=== PATIENT | female | born 2000 | race African-American/Black ===

== ENCOUNTER 2020-07-13 13:19 | Emergency (ER) | payer SELFPAY ==
[~2020-07-13] VITALS: Ht 170.2 cm; Wt 101.6 kg
--- NOTE | 2020-07-13 13:49 | PHYS DOC ---
General Adult EDM: Chief Complaint: LOWER BACK PAIN OR INJURY HPI: HPI: Patient is a 20-year-old female who presents with lower back pain. Patient states that she was at work yesterday trying to take a box of Albanian fries off the top shelf, the Albanian fries fell and hit her lower back. Patient states t hat she did not have any pain at the time but started having lower back pain today. Patient denies any radiation of pain, urinary retention or loss of bowel. Patient denies numbness and tingling. Patient reports taking Tylenol at home with little relief for pain. Review of Systems: Review of Systems: Constitutional: Denies fever or chills Eyes: Denies change in visual acuity HENT: Denies nasal congestion or sore throat Respiratory: Denies cough or shortness of breath Cardiovascular: Denies chest pain or edema GI: Denies abdominal pain, nausea, vomiting, bloody stools or diarrhea : Denies dysuria Musculoskeletal: Reports lower back pain denies joint pain Integument: Denies rash Neurologic: Denies headache, focal weakness or sensory changes Endocrine: Denies polyuria or polydipsia Lymphatic: Denies swollen glands Psychiatric: Denies depression or anxiety Allergies: Allergies: Allergies Uncoded Allergies Type Severity Reaction Last Updated Verified UNKNOWN ADHD MED Allergy Unknown 07/13/20 Physical Exam: PE: Constitutional: Well developed, well nourished, no acute distress, non-toxic appearance. [] HENT: Normocephalic, atraumatic, bilateral external ears normal, oropharynx moist, no oral exudates, nose normal. [] Eyes: PERRLA, EOMI, conjunctiva normal, no discharge. [] Neck: Normal range of motion, no tenderness, supple, no stridor. [] Cardiovascular:Heart rate regular rhythm, no murmur [] Lungs & Thorax: Bilateral breath sounds clear to auscultation [] Abdomen: Bowel sounds normal, soft, no tenderness, no masses, no pulsatile masses. [] Skin: Warm, dry, no erythema, no rash. [] Back: Lower back tenderness, no CVA tenderness. [] Extremities: No tenderness, no cyanosis, no clubbing, ROM intact, no edema. [] Neurologic: Alert and oriented X 3, normal motor function, normal sensory function, no focal deficits noted. [] Psychologic: Affect normal, judgement normal, mood normal. [] EKG: EKG: [] Radiology/Procedures: Radiology/Procedures: []NDICATION: Reason: box fell on lower back, back pain / Spl. Instructions: / History: COMPARISON: None. IMPRESSION: Lumbar spine: 3 views obtained. No acute fracture or dislocation. Mild retrolisthesis of L4 on 5 and L5 on S1. Electronically signed by: Marc Romna MD (07/13/2020 2:10 PM) [id number] Heart Score: Risk Factors: Risk Factors: DM, Current or recent (<one month) smoker, HTN, HLP, family history of CAD, obesity. Risk Scores: Score 0 - 3: 2.5% MACE over next 6 weeks - Discharge Home Score 4 - 6: 20.3% MACE over next 6 weeks - Admit for Clinical Observation Score 7 - 10: 72.7% MACE over next 6 weeks - Early Invasive Strategies Course & Med Decision Making: Course & Med Decision Making Pertinent Labs and Imaging studies reviewed. (See chart for details) []Patient is a 20-year-old female who presents with lower back pain. Patient states that she was at work yesterday trying to take a box of Albanian fries off the top shelf, the Albanian fries fell and hit her lower back. Patient states that she did not have any pain at the time but started having lower back pain today. Patient denies any radiation of pain, urinary retention or loss of bowel. Patient denies numbness and tingling. Patient reports taking Tylenol at home with little relief for pain. While discussing plan with patient, patient suggested x-ray. Patient states her last menstrual period was 05/03/2020. Patient unsure if she is . Will obtain urine preg and lumbar x-ray. Negative Test. Lumbar spine xray shows No acute fracture or dislocation. Mild retrolisthesis of L4 on 5 and L5 on S1. Will give patient torodal injection in ED and send home with prescription for flexeril. Patient to follow up with PCP if symptoms are not improving. Ibuprofen and ice at home for discomfort. Dragon Disclaimer: Dragon Disclaimer: This electronic medical record was generated, in whole or in part, using a voice recognition dictation system. Departure Departure: Impression: Primary Impression: Back pain Qualified Codes: M54.5 - Low back pain Disposition: 01 DC HOME SELF CARE/HOMELESS Condition: STABLE Referrals: PCP,NO (PCP) Patient Instructions: Back Exercises, [id number], Back Pain, Adult Additional Instructions: You were seen in the ER today for lower back pain. Your test was negative. The Lumbar spine xray shows No acute fracture or dislocation. You were given a torodal injection in ED and sent home with a prescription for flexeril. You can you ibuprofen at home for pain and use ice to your lower back. If symptoms persist, please follow up with primary care physician. I have also provided you with a work note for today. Please return to the ED for worsening symptoms or concerns. EMERGENCY DEPARTMENT GENERAL DISCHARGE INSTRUCTIONS Thank you for coming to [facility] (ED) today and trusting us with you care. We trust that you had a positivie experience in our Emergency Department. If you wish to speak to the department management, you may call the director at [phone]. YOUR FOLLOW UP INSTRUCTIONS ARE FOLLOWS: 1. Do you have a private Doctor? If you do not have a private doctor, please ask for a resource list of physicians or clinics that may be able to assist you with follow up care. 2. The Emergency Physician has interpreted your x-rays. The X-Ray specialist will also review them. If there is a change in the findings, you will be notified in 48 hours when at all possible. 3. A lab test or culture has been done, your results will be reviewed and you will be notified if you need a change in treatment. ADDITIONAL INSTRUCTIONS AND INFORMATION: 1. Your care today has been supervised by a physician who is specially trained in emergency care. Many problems require more than one evaluation for a complete diagnosis and treatment. We recommend that you schedule your follow up appointment as recommended to ensure complete treatment of you illness or injury. If you are unable to obtain follow up care and continue to have a problem, or if your condition worsens, we recommend that you return to the ED. 2. We are not able to safely determine your condition over the phone nor are we able to give sound medical advice over the phone. For these safety reasons, if you call for medical advice we will ask you to come to the ED for further evaluation. 3. If you have any questions regarding these discharge instructions please call the ED at [phone]. SAFETY INFORMATION: In the interest of safety, wellness, and injury prevention; we encourage you to wear your sealbelt, if you smoke; quite smoking, and we encourage family to use a protective helmet for bicycling and other sporting events that present an increased risk for head injury. IF YOUR SYMPTOMS WORSEN OR NEW SYMPTOMS DEVELOP, OR YOU HAVE CONCERNS ABOUT YOUR CONDITION; OR IF YOUR CONDITION WORSENS WHILE YOU ARE WAITING FOR YOUR FOLLOW UP APPOINTMENT; EITHER CONTACT YOUR PRIMARY CARE DOCTOR, THE PHYSICIAN WHOSE NAME AND NUMBER YOU WERE GIVEN, OR RETURN TO THE ED IMMEDIATELY. Scripts Cyclobenzaprine Hcl (CYCLOBENZAPRINE HCL) 10 Mg Tablet 1 TAB PO TID PRN PRN for PAIN for 4 Days, #12 TAB Prov: EBONIE JAY APRN 07/13/20 EBONIE JAY APRN Jul 13, 2020 13:49
--- NOTE | 2020-07-13 14:13 | RAD ---
INDICATION: Reason: box fell on lower back, back pain / Spl. Instructions: / History: COMPARISON: None. IMPRESSION: Lumbar spine: 3 views obtained. No acute fracture or dislocation. Mild retrolisthesis of L4 on 5 and L5 on S1. Electronically signed by: Marc Roman MD (07/13/2020 2:10 PM) [id number]
[2020-07-13] MEDS ORDERED: CYCL-331 PO (14:26)
[2020-07-13 14:28] VITALS: BP 127/65
[2020-07-13] MEDS ORDERED: KETOROLAC 60 MG/2 ML VIAL. IM ONE (14:30)
[2020-07-13] MEDS ORDERED: CYCLOBENZAPRINE 10 MG TABLET. PO ONE (14:30)
== END 2020-07-13 14:40 | disposition home or self-care (01) ==
LOC: ER 13:19
DX: M54.5 Low back pain (principal); X50.9XXA Other and unspecified overexertion or strenuous movements or postures, initial encounter; Y93.89 Activity, other specified; Y92.89 Other specified places as the place of occurrence of the external cause; Y99.8 Other external cause status
CPT/HCPCS: 72100; 81025; 96372; 99283; J1885

== ENCOUNTER 2020-08-30 13:48 | Emergency (ER) | payer SELFPAY ==
[~2020-08-30] VITALS: Ht 170.2 cm; Wt 95.5 kg
[~2020-08-30 13:48] MED LIST: CYCL-331 PO
--- NOTE | 2020-08-30 14:16 | PHYS DOC ---
Past History Past Medical History: Other Additional Past Medical Histor: ADHD Past Surgical History: No Surgical History Alcohol Use: Occasionally Adult General Chief Complaint Chief Complaint: ABDOMINAL PAIN HPI HPI Patient is a 20-year-old female reports she started her normal menstrual cycle yesterday, woke up this morning with heavy cramping. Patient describes her menstrual bleeding as rubber mixer than normal, usually last 5 days. Patient states she has been having intermittent missed menstrual cycles that have been increasing over the past couple of years, states her last normal menstrual cycle was May [id number]. Patient describes her cramping is low pelvic, is not worse on the left or the right side. Patient reports her cramping is an 10/10 1-10 pain scale. Patient reports that her menstrual cramping is worse than usual, however has not had a 4-month delay in menstrual cycle in the past. Patient denies any vaginal discharge, denies any STI concerns. Patient denies urinary tract infection signs and symptoms. Patient states she had a normal bowel movement today. Patient denies any abdominal pain, nausea, vomiting, or diarrhea. Patient denies any recent fever or chills, denies body aches or gene ral malaise. Patient denies chest pain, shortness of breath, chest congestion or nasal congestion. Patient reports she took 800 mg of Motrin 2 hours ago and has not noticed any pain relief. Review of Systems Review of Systems 14 body systems of review of systems have been reviewed. See HPI for pertinent positives and negative responses, otherwise all other systems are negative, nonpertinent or noncontributory. Allergies Allergies Allergies Uncoded Allergies Type Severity Reaction Last Updated Verified UNKNOWN ADHD MED Allergy Unknown 07/13/20 Physical Exam Physical Exam Constitutional: Well developed, well nourished, no acute distress, non-toxic appearance. 20-year-old female in no apparent distress. HENT: Normocephalic, atraumatic, bilateral external ears normal, oropharynx moist, no oral exudates, nose normal. Oropharynx pink without drainage without signs of infectious process, there is no lymphadenopathy appreciated of the head and neck. Eyes: PERRLA, EOMI, conjunctiva normal, no discharge. Neck: Normal range of motion, no tenderness, supple, no stridor. No nuchal rigidity, no midline spine tenderness appreciated. Cardiovascular:Heart rate regular rhythm, no murmur, heart sounds S1-S2 to auscultation. Lungs & Thorax: Bilateral breath sounds clear to auscultation all lung waters. No adventitious lung sounds appreciated. Abdomen: Bowel sounds normal all 4 quadrants, soft, no tenderness all 4 quadrants however pain elicited with palpation low pelvic area with increased pain on left, no masses, no pulsatile masses. Skin: Warm, dry, no erythema, no rash. Back: No tenderness, no CVA tenderness. No midline spine tenderness. Extremities: No tenderness, no cyanosis, no clubbing, ROM intact, no edema. Distal cap refill less than 2 seconds, distal pulses +2/4. Neurologic: Alert and oriented X 3, normal motor function, normal sensory function, no focal deficits noted. Psychologic: Affect normal, judgement normal, mood normal. Current Patient Data Vital Signs Vital Signs Date Time Temp Pulse Resp B/P (MAP) Pulse Ox O2 Delivery O2 Flow Rate FiO2 08/30/20 13:56 97.8 70 16 127/67 (87) 98 Room Air Lab Results Laboratory Tests Test 08/30/20 14:19 08/30/20 14:34 08/30/20 14:46 Urine Collection Type Unknown Urine Color Flory Urine Clarity Clear Urine pH 6.5 Urine Specific [place] 1.025 Urine Protein Neg Urine Glucose (UA) Neg mg/dL Urine Ketones (Stick) Neg mg/dL Urine Blood Large Urine Nitrite Neg Urine Bilirubin Neg Urine Urobilinogen Dipstick 0.2 mg/dL Urine Leukocyte Esterase Neg Urine RBC >40 /HPF Urine WBC 0 /HPF Urine Squamous Epithelial Cells Mod /LPF Urine Bacteria 0 /HPF Bedside Urine HCG, Qualitative hcg negative White Blood Count 8.4 x10^3/uL Red Blood Count 4.06 x10^6/uL Hemoglobin 11.9 g/dL Hematocrit 36.9 % Mean Corpuscular Volume 91 fL Mean Corpuscular Hemoglobin 29 pg Mean Corpuscular Hemoglobin Concent 32 g/dL Red Cell Distribution Width 13.9 % Platelet Count 282 x10^3/uL Neutrophils (%) (Auto) 67 % Lymphocytes (%) (Auto) 24 % Monocytes (%) (Auto) 8 % Eosinophils (%) (Auto) 1 % Basophils (%) (Auto) 0 % Neutrophils # (Auto) 5.6 x10^3uL Lymphocytes # (Auto) 2.0 x10^3/uL Monocytes # (Auto) 0.6 x10^3/uL Eosinophils # (Auto) 0.1 x10^3/uL Basophils # (Auto) 0.0 x10^3/uL Sodium Level 141 mmol/L Potassium Level 4.0 mmol/L Chloride Level 105 mmol/L Carbon Dioxide Level 26 mmol/L Anion Gap 10 Blood Urea Nitrogen 15 mg/dL Creatinine 0.8 mg/dL Estimated GFR (Cockcroft-Gault) 110.7 Glucose Level 74 mg/dL Calcium Level 8.8 mg/dL Current Medications Medications (Trade) Dose Ordered Sig/Lata Route PRN Reason Start Time Stop Time Status Last Admin Dose Admin Ketorolac Tromethamine (Toradol Im) 60 mg 1X ONCE IM 08/30/20 14:45 08/30/20 14:46 DC 08/30/20 14:44 Acetaminophen/ Hydrocodone Bitart (Lortab 5/325) 1 tab 1X ONCE PO 08/30/20 14:45 08/30/20 14:46 DC 08/30/20 14:44 EKG EKG [] Radiology/Procedures Radiology/Procedures [] Heart Score C/O Chest Pain: No Risk Factors: Risk Factors: DM, Current or recent (<one month) smoker, HTN, HLP, family history of CAD, obesity. Risk Scores: Risk Factors: DM, Current or recent (<one month) smoker, HTN, HLP, family history of CAD, obesity. Course & Med Decision Making Course & Med Decision Making Pertinent Labs and Imaging studies reviewed. (See chart for details) 20-year-old female, vital signs reviewed, presents emergency department concerning of menstrual cramping that is worse than usual. Physical examination was consistent with abnormal uterine bleeding versus abnormal menstrual cycle versus ovarian torsion. Discussed with patient will obtain a urine sample for urinalysis assay and urine test. Urine negative, urine assay pending at this time, will give 60 mg IM Toradol and 1 tablet of 5/325 hydrocodone p.o. for pain. Pelvic sono ordered to rule out torsion. Upon reexamination of the patient, the patient is pain-free. Patient now states that her mother advised her through a text message that there is a family history of PCOS, uterine fibroids and ovarian cyst. Patient states that she no longer wishes to stay for pelvic sono to rule out a torsion. States that she is pain-free and wants to go home now. Discussed with patient that a torsion can resolve and then reexacerbate. Patient states that she understands this but still wishes to go home. Patient was given strict return to ER instructions, gave verbal understanding of discharge home instructions, strict follow-up with [facility] this week for further evaluation of her pelvic findings, return to ER precautions or concerns. Patient refused pelvic exam, patient was discharged home without incident. Diagnosis abnormal menstrual cycles. Patient was given an [facility] follow-up physician. Miguel Disclaimer Miguel Disclaimer This electronic medical record was generated, in whole or in part, using a voice recognition dictation system. Departure Departure: Impression: Primary Impression: Abnormal menstrual periods Disposition: DC HOME SELF CARE/HOMELESS Condition: GOOD Referrals: PCPJEFFRY (PCP) Additional Instructions: Please follow-up with a [facility] specialist for ongoing abnormal periods and low pelvic pain, and follow-up for family history of uterine fibroids and ovarian cyst. Please return to the emergency department for worsening symptoms or other concerns. [facility] Amrit Hodgson reviews [facility] [address] [facility] Dr[address] Mariam Sagastume Address: [address] [place] [address] EMERGENCY DEPARTMENT GENERAL DISCHARGE INSTRUCTIONS Thank you for coming to [facility] (ED) today and trusting us with you care. We trust that you had a positivie experience in our Emergency Department. If you wish to speak to the department management, you may call the director at [phone]. YOUR FOLLOW UP INSTRUCTIONS ARE FOLLOWS: 1. Do you have a private Doctor? If you do not have a private doctor, please ask for a resource list of physicians or clinics that may be able to assist you with follow up care. 2. The Emergency Physician has interpreted your x-rays. The X-Ray specialist will also review them. If there is a change in the findings, you will be notified in 48 hours when at all possible. 3. A lab test or culture has been done, your results will be reviewed and you will be notified if you need a change in treatment. ADDITIONAL INSTRUCTIONS AND INFORMATION: 1. Your care today has been supervised by a physician who is specially trained in emergency care. Many problems require more than one evaluation for a complete diagnosis and treatment. We recommend that you schedule your follow up appointment as recommended to ensure complete treatment of you illness or injury. If you are unable to obtain follow up care and continue to have a problem, or if your condition worsens, we recommend that you return to the ED. 2. We are not able to safely determine your condition over the phone nor are we able to give sound medical advice over the phone. For these safety reasons, if you call for medical advice we will ask you to come to the ED for further evaluation. 3. If you have any questions regarding these discharge instructions please call the ED at [phone]. SAFETY INFORMATION: In the interest of safety, wellness, and injury prevention; we encourage you to wear your sealbelt, if you smoke; quite smoking, and we encourage family to use a protective helmet for bicycling and other sporting events that present an increased risk for head injury. IF YOUR SYMPTOMS WORSEN OR NEW SYMPTOMS DEVELOP, OR YOU HAVE CONCERNS ABOUT YOUR CONDITION; OR IF YOUR CONDITION WORSENS WHILE YOU ARE WAITING FOR YOUR FOLLOW UP APPOINTMENT; EITHER CONTACT YOUR PRIMARY CARE DOCTOR, THE PHYSICIAN WHOSE NAME AND NUMBER YOU WERE GIVEN, OR RETURN TO THE ED IMMEDIATELY. Scripts Ibuprofen (IBUPROFEN) 600 Mg Tablet 600 MG PO TID PRN PRN for PAIN, #20 TAB 0 Refills Prov: NERY HUNT APRN 08/30/20 NERY HUNT APRN Aug 30, 2020 14:16
[2020-08-30] MEDS ORDERED: KETOROLAC 60 MG/2 ML VIAL. IM ONE (14:45)
[2020-08-30] MEDS ORDERED: HYDROcodone/APAP 5/325MG 1 TAB TABLET PO ONE (14:45)
[2020-08-30 15:08] LABS: BASO % 0 % (0-3); EOS # 0.1 x10^3/uL (0.0-0.7); EOS % 1 % (0-3); HEMATOCRIT 36.9 % (36.0-47.0); HEMOGLOBIN 11.9 g/dL (12.0-15.5); LYMPH % 24 % (24-48); MEAN CORPUSCULAR HEMOGLOBIN 29 pg (25-35); MEAN CORPUSCULAR HGB CONC 32 g/dL (31-37); MEAN CORPUSCULAR VOLUME 91 fL (79-100); MONO # 0.6 x10^3/uL (0.0-1.1); MONO % 8 % (0-9); NEUT # 5.6 x10^3uL (1.8-7.7); NEUT % 67 % (31-73); PLATELET COUNT 282 x10^3/uL (140-400); RED BLOOD COUNT 4.06 x10^6/uL (3.50-5.40); RED CELL DISTRIBUTION WIDTH 13.9 % (11.5-14.5); WHITE BLOOD COUNT 8.4 x10^3/uL (4.0-11.0)
[2020-08-30 15:15] LABS: BILIRUBIN,URINE NEG (NEG); CLARITY,URINE CLEAR; COLOR,URINE AMBER; GLUCOSE,URINE NEG (NEG)
[2020-08-30 15:16] LABS: BACTERIA,URINE 0 /HPF (0-FEW); NITRITE,URINE NEG (NEG); RBC,URINE >40 /HPF (0-2); SQUAMOUS EPITHELIAL CELL,UR MOD /LPF; UROBILINOGEN,URINE 0.2 mg/dL (0.2 mg/dL); WBC,URINE 0 /HPF (0-4)
[2020-08-30 15:19] LABS: CALCIUM 8.8 mg/dL (8.5-10.1); CREATININE 0.8 mg/dL (0.6-1.0); GFR 110.7
[2020-08-30] MEDS ORDERED: IBUP600T16 PO (15:58)
[2020-08-30 16:04] VITALS: BP 125/68
== END 2020-08-30 16:04 | disposition home or self-care (01) ==
LOC: ER 13:48
DX: N92.5 Other specified irregular menstruation (principal); F90.9 Attention-deficit hyperactivity disorder, unspecified type
CPT/HCPCS: 36415; 80048; 81001; 81025; 85025; 87491; 87591; 96372; 99283; J1885

== ENCOUNTER 2020-09-14 17:22 | Emergency (ER) | payer SELFPAY ==
[~2020-09-14] VITALS: Ht 170.2 cm; Wt 95.5 kg
[~2020-09-14 17:22] MED LIST changes: +IBUP600T16 PO
[2020-09-14 17:31] VITALS: BP 106/46
[2020-09-14] MEDS ORDERED: AMOX1TAB11 PO (18:02)
--- NOTE | 2020-09-14 18:03 | PHYS DOC ---
Past History Past Medical History: Other Additional Past Medical Histor: ADHD Past Surgical History: No Surgical History Alcohol Use: Occasionally General Adult EDM: Chief Complaint: EARACHE/EAR PAIN HPI: HPI: Patient is a 20-year-old female who presents with right ear pain. Patient states that pain has been constant since yesterday. Patient denies congestion, sore throat, fever. Denies medical history. Review of Systems: Review of Systems: Constitutional: Denies fever or chills Eyes: Denies change in visual acuity HENT: Denies nasal congestion or sore throat Respiratory: Denies cough or shortness of breath Cardiovascular: Denies chest pain or edema GI: Denies abdominal pain, nausea, vomiting, bloody stools or diarrhea : Denies dysuria Musculoskeletal: Denies back pain or joint pain Integument: Denies rash Neurologic: Denies headache, focal weakness or sensory changes Endocrine: Denies polyuria or polydipsia Lymphatic: Denies swollen glands Psychiatric: Denies depression or anxiety Allergies: Allergies: Allergies Uncoded Allergies Type Severity Reaction Last Updated Verified UNKNOWN ADHD MED Allergy Unknown 07/13/20 Physical Exam: PE: Constitutional: Well developed, well nourished, no acute distress, non-toxic appearance. [] HENT: bilateral external ears normal, right- TM inflammation, oropharynx moist, no oral exudates, nose normal. [] Eyes: PERRLA, EOMI, conjunctiva normal, no discharge. [] Neck: Normal range of motion, no tenderness, supple, no stridor. [] Cardiovascular:Heart rate regular rhythm, no murmur [] Lungs & Thorax: Bilateral breath sounds clear to auscultation [] Abdomen: Bowel sounds normal, soft, no tenderness, no masses, no pulsatile mass es. [] Skin: Warm, dry, no erythema, no rash. [] Back: No tenderness, no CVA tenderness. [] Extremities: No tenderness, no cyanosis, no clubbing, ROM intact, no edema. [] Neurologic: Alert and oriented X 3, normal motor function, normal sensory function, no focal deficits noted. [] Psychologic: Affect normal, judgement normal, mood normal. [] Current Patient Data: Vital Signs: Vital Signs Date Time Temp Pulse Resp B/P (MAP) Pulse Ox O2 Delivery O2 Flow Rate FiO2 09/14/20 17:31 98.0 64 16 106/46 (66 99 Room Air EKG: EKG: [] Radiology/Procedures: Radiology/Procedures: [] Heart Score: C/O Chest Pain: No Risk Factors: Risk Factors: DM, Current or recent (<one month) smoker, HTN, HLP, family history of CAD, obesity. Risk Scores: Score 0 - 3: 2.5% MACE over next 6 weeks - Discharge Home Score 4 - 6: 20.3% MACE over next 6 weeks - Admit for Clinical Observation Score 7 - 10: 72.7% MACE over next 6 weeks - Early Invasive Strategies Course & Med Decision Making: Course & Med Decision Making Pertinent Labs and Imaging studies reviewed. (See chart for details) [] Patient is complaining of right ear pain. Pain started yesterday. TM shows inflammation. Sending patient home with amoxicillin-clavulanate for Acute Otitis Media. Dragon Disclaimer: Dragon Disclaimer: This electronic medical record was generated, in whole or in part, using a voice recognition dictation system. Departure Departure: Impression: Primary Impression: Acute otitis media Qualified Codes: H66.001 - Acute suppurative otitis media without spontaneous rupture of ear drum, right ear Referrals: PCP,NO (PCP) Patient Instructions: Otitis Media, Adult, [id number] Additional Instructions: EMERGENCY DEPARTMENT GENERAL DISCHARGE INSTRUCTIONS Thank you for coming to [facility] (ED) today and trusting us with you care. We trust that you had a positivie experience in our Emergency Department. If you wish to speak to the department management, you may call the director at [phone]. YOUR FOLLOW UP INSTRUCTIONS ARE FOLLOWS: 1. Do you have a private Doctor? If you do not have a private doctor, please ask for a resource list of physicians or clinics that may be able to assist you with follow up care. 2. The Emergency Physician has interpreted your x-rays. The X-Ray specialist will also review them. If there is a change in the findings, you will be notified in 48 hours when at all possible. 3. A lab test or culture has been done, your results will be reviewed and you will be notified if you need a change in treatment. ADDITIONAL INSTRUCTIONS AND INFORMATION: 1. Your care today has been supervised by a physician who is specially trained in emergency care. Many problems require more than one evaluation for a complete diagnosis and treatment. We recommend that you schedule your follow up appointment as recommended to ensure complete treatment of you illness or injury. If you are unable to obtain follow up care and continue to have a problem, or if your condition worsens, we recommend that you return to the ED. 2. We are not able to safely determine your condition over the phone nor are we able to give sound medical advice over the phone. For these safety reasons, if you call for medical advice we will ask you to come to the ED for further evaluation. 3. If you have any questions regarding these discharge instructions please call the ED at [phone]. SAFETY INFORMATION: In the interest of safety, wellness, and injury prevention; we encourage you to wear your sealbelt, if you smoke; quite smoking, and we encourage family to use a protective helmet for bicycling and other sporting events that present an increased risk for head injury. IF YOUR SYMPTOMS WORSEN OR NEW SYMPTOMS DEVELOP, OR YOU HAVE CONCERNS ABOUT YOUR CONDITION; OR IF YOUR CONDITION WORSENS WHILE YOU ARE WAITING FOR YOUR FOLLOW UP APPOINTMENT; EITHER CONTACT YOUR PRIMARY CARE DOCTOR, THE PHYSICIAN WHOSE NAME AND NUMBER YOU WERE GIVEN, OR RETURN TO THE ED IMMEDIATELY. Scripts Amoxicillin/Potassium Clav (AMOX TR-K CLV 875-125 MG TAB) 1 Each Tablet 1 TAB PO BID for infection for 5 Days, #10 TAB Prov: EBONIE JAY APRN 09/14/20 EBONIE JAY APRN Sep 14, 2020 18:03
== END 2020-09-14 18:11 | disposition home or self-care (01) ==
LOC: ER 17:22
DX: H66.001 Acute suppurative otitis media without spontaneous rupture of ear drum, right ear (principal); Z88.8 Allergy status to other drugs, medicaments and biological substances
CPT/HCPCS: 99283

== ENCOUNTER 2020-09-29 12:41 | Emergency (ER) | payer SELFPAY ==
[~2020-09-29] VITALS: Ht 170.2 cm; Wt 95.5 kg
[~2020-09-29 12:41] MED LIST changes: +AMOX1TAB11 PO
[2020-09-29 12:55] VITALS: BP 120/57
[2020-09-29 13:38] LABS: BILIRUBIN,URINE NEG (NEG); CLARITY,URINE HAZY; COLOR,URINE YELLOW; GLUCOSE,URINE NEG (NEG); NITRITE,URINE NEG (NEG); UROBILINOGEN,URINE 0.2 mg/dL (0.2 mg/dL)
[2020-09-29 13:39] LABS: BACTERIA,URINE FEW /HPF (0-FEW); RBC,URINE 0 /HPF (0-2); SQUAMOUS EPITHELIAL CELL,UR MOD /LPF; WBC,URINE RARE /HPF (0-4)
--- NOTE | 2020-09-29 13:49 | PHYS DOC ---
Past History Past Medical History: Anxiety, Bipolar, Depression, Schizophrenia, Other Additional Past Medical Histor: ADHD, PTSD Past Surgical History: No Surgical History Alcohol Use: Occasionally Adult General Chief Complaint Chief Complaint: VAGINAL BLEEDING HPI HPI Patient is a 20-year-old female who presents to the emergency room with concern that she may have had a miscarriage last night. Patient states that last night while she was at work she had this lower abdominal cramping and then when she went to the bathroom and had a plum sized mucus in her underwear. She states this is happened to her 2 previous times when she has been and miscarried. She denies any vaginal bleeding. She has not followed with her [employer]FF. She states she did not know she was and has not taken a test. Review of Systems Review of Systems Complete ROS is negative unless otherwise documented in HPI Allergies Allergies Allergies Uncoded Allergies Type Severity Reaction Last Updated Verified UNKNOWN ADHD MED Allergy Unknown 07/13/20 Physical Exam Physical Exam General: Awake, alert, NAD. Well Nourished, well hydrated. Cooperative HEENT: Atraumatic, EOMI, PERRL, airway patent, moist oral mucosa Neck: Supple, trachea midline Respiratory: CTA bilaterally, normal effort, no wheezing/crackles CV: RRR, no murmur, cap refill <2 GI: Soft, nondistended, nontender, no masses MSK: No obvious deformities Skin: Warm, dry, intact Neuro: A&O x3, speech NL, sensory and motor grossly intact, no focal deficits Psych: Normal affect, normal mood, not suicidal or homicidal Current Patient Data Vital Signs Vital Signs Date Time Temp Pulse Resp B/P (MAP) Pulse Ox O2 Delivery O2 Flow Rate FiO2 09/29/20 12:55 98.0 74 16 120/57 (78) 98 Room Air Lab Results Laboratory Tests Test 09/29/20 13:12 09/29/20 13:17 Urine Collection Type Unknown Urine Color Yellow Urine Clarity Hazy Urine pH 7.0 Urine Specific [place] 1.025 Urine Protein Neg (NEG-TRACE) Urine Glucose (UA) Neg mg/dL (NEG) Urine Ketones (Stick) Neg mg/dL (NEG) Urine Blood Neg (NEG) Urine Nitrite Neg (NEG) Urine Bilirubin Neg (NEG) Urine Urobilinogen Dipstick 0.2 mg/dL (0.2 mg/dL) Urine Leukocyte Esterase Neg (NEG) Urine RBC 0 /HPF (0-2) Urine WBC Rare /HPF (0-4) Urine Squamous Epithelial Cells Mod /LPF Urine Bacteria Few /HPF (0-FEW) POC Urine HCG, Qualitative hcg negative (Negative) EKG EKG [] Radiology/Procedures Radiology/Procedures [] Heart Score C/O Chest Pain: N/A Risk Factors: Risk Factors: DM, Current or recent (<one month) smoker, HTN, HLP, family history of CAD, obesity. Risk Scores: Risk Factors: DM, Current or recent (<one month) smoker, HTN, HLP, family history of CAD, obesity. Course & Med Decision Making Course & Med Decision Making Pertinent Labs and Imaging studies reviewed. (See chart for details) Patient is 20-year-old female presents the emergency room concerned she may have had a miscarriage last night. Patient's test is negative. Patient has no other complaints. I have recommended that she follows up with [employer]. Patient's test results and vitals while in the ED were fully reviewed and discussed with the patient. Patient is stable and at this time does not need admission to the hospital. We have discussed strict return precautions and the importance of following up with their Primary Care Physician. Patient stated understanding and was given an opportunity to ask any questions. Patient is in agreement with plan. Dragon Disclaimer Dragon Disclaimer This electronic medical record was generated, in whole or in part, using a voice recognition dictation system. Departure Departure: Impression: Primary Impression: Vaginal discharge Disposition: 01 DC HOME SELF CARE/HOMELESS Condition: STABLE Referrals: PCP,NO (PCP) Patient Instructions: Abnormal Uterine Bleeding LALI ANDREWS MD Sep 29, 2020 13:49
== END 2020-09-29 13:54 | disposition home or self-care (01) ==
LOC: ER 12:41
DX: N89.8 Other specified noninflammatory disorders of vagina (principal); R10.30 Lower abdominal pain, unspecified; F41.9 Anxiety disorder, unspecified; F31.9 Bipolar disorder, unspecified; F20.9 Schizophrenia, unspecified; F90.9 Attention-deficit hyperactivity disorder, unspecified type; F43.10 Post-traumatic stress disorder, unspecified
CPT/HCPCS: 81001; 81025; 99283

== ENCOUNTER 2020-10-31 04:40 | Emergency (ER) | payer OTHER ==
[~2020-10-31] VITALS: Ht 170.2 cm; Wt 93.5 kg
--- NOTE | 2020-10-31 04:47 | PHYS DOC ---
Past History Past Medical History: Anemia, Anxiety, Bipolar, Constipation, Depression, Schizophrenia, STD, UTI, Other Additional Past Medical Histor: ADHD, PTSD (YOLA NIELSEN MD) Past Surgical History: No Surgical History (YOLA NIELSEN MD) Smoking: Cigarettes Alcohol Use: Occasionally (YOLA NIELSEN MD) General Adult HPI: HPI: ".. My stomach has been hurting bad since from about mid night.. right here on Lt. mid..and lower.. " Patient is a 20 year old FEMALE who presents with above hx and complaints of left mid and lower abdomen pain. Patient denies any fever or chills. Patient denies any trauma. Patient reports some constipation today. Patient denies any intake of bad food. Patient does give a past history of ovarian cyst and dysfunctional uterine bleeding. Patient has had a history of urinary tract infections as well as STDs.. Patient denies any history of renal colic or kidney stones. The patient denies any history of colitis with her or family members.. Patient denies any recent travel or specific ill contacts. Patient denies any history immunosuppression. Does have past medical history of anxiety, bipolar disorder, depression, schizoaffective disorder, ADHD, PTSD, and anxiety disorder. Patient does not follow primary care. Advised that she does] department if she needs care. (YOLA NIELSEN MD) Review of Systems: Review of Systems: Constitutional: Denies fever or chills Eyes: Denies change in visual acuity HENT: Denies nasal congestion or sore throat Respiratory: Denies cough or shortness of breath Cardiovascular: Denies chest pain or edema GI: Complains of left mid and lower abdominal pain,. Denies nausea, vomiting, bloody stools or diarrhea : Some dysuria Musculoskeletal: Denies back pain or joint pain Integument: Denies rash Neurologic: Denies headache, focal weakness or sensory changes Endocrine: Denies polyuria or polydipsia Lymphatic: Denies swollen glands Psychiatric: Denies depression or anxiety (YOLA NIELSEN MD) Family History: Family History: Noncontributory to presentation (YOLA NIELSEN MD) Current Medications: Current Meds: See nursing for home meds (YOLA NIELSEN MD) Allergies: Allergies: Allergies Uncoded Allergies Type Severity Reaction Last Updated Verified UNKNOWN ADHD MED Allergy Unknown 07/13/20 (YOLA NIELSEN MD) Physical Exam: PE: Constitutional: Moderate acute distress, non-toxic appearance. [] HENT: Normocephalic, atraumatic, bilateral external ears normal, oropharynx moist, no oral exudates, nose normal. [] Eyes: PERRLA, EOMI, conjunctiva normal, no discharge. [] Neck: Normal range of motion, no tenderness, supple, no stridor. [] Cardiovascular:Heart rate regular rhythm, no murmur [] Lungs & Thorax: Bilateral breath sounds equal apex with few scattered wheezes auscultation [] Abdomen: Bowel sounds normal, soft, mid to left lower tenderness, no masses, no pulsatile masses. Distended. Rebound to mid to left lower quadrant. Patient at this time declining pelvic exam. Skin: Warm, dry, no erythema, no rash. [] Back: No tenderness, no CVA tenderness. [] Extremities: No tenderness, no cyanosis, no clubbing, ROM intact, no edema. No psoas sign. But does state it hurts in her left mid to lower abdomen when she jumps up and down. Neurologic: Alert and oriented X 3, normal motor function, normal sensory func tion, no focal deficits noted. [] Psychologic: Affect anxious , judgement normal, mood normal. [] (YOLA NIELSEN MD) EKG: EKG: [] (YOLA NEILSEN MD) Radiology/Procedures: Radiology/Procedures: X-rays pending at shift change [] (YOLA NIELSEN MD) Radiology/Procedures: CT abdomen and pelvis with contrast: Reason for examination: Severe left mid abdominal pain. Helical images were obtained through the abdomen and pelvis with intravenous administration of 75 cc Omnipaque 300 and oral contrast. Reconstruction was performed in sagittal and coronal planes. Exposure: One or more of the following individualized dose reduction techniques were utilized for this examination: 1. Automated exposure control 2. Adjustment of the mA and/or kV according to patient size 3. Use of iterative reconstruction technique. The lung bases are clear. The heart size is normal with no pericardial effusion evident. No abnormality seen at the liver, gallbladder, spleen, adrenal glands or pancreas. The abdominal aorta and inferior vena cava show no acute abnormalities. The colon shows no diverticulosis, diverticulitis or colitis. No abnormality seen at the appendix. The small intestinal tract shows no abnormal dilatation, wall thickening or obstruction. No abnormality seen at the stomach or duodenum. The kidneys show no renal masses, renal calculi, hydronephrosis or evidence of obstructive uropathy. No abnormality seen at the bladder. There is fluid in the endometrial cavity. There appears to be a 2 cm hypodense lesion in the right ovary possibly representing a cyst and probable small follicles in the left ovary. No free fluid or free air is seen in the abdomen or pelvis. Several lymph nodes measuring up to 2.4 cm in size are present in the inguinal regions bilaterally. No acute bony abnormalities are evident. IMPRESSION: Hypodense lesion in the right ovary measuring 2 cm in size which may represent a ovarian cyst. Probable follicles in the left ovary. Fluid in the endometrial cavity. Lymph nodes in the inguinal regions bilaterally measuring up to 2.4 cm in size. No other focal abnormalities evident in the abdomen or pelvis. (ANIA AVILEZ MD) Heart Score: C/O Chest Pain: N/A Risk Factors: Risk Factors: DM, Current or recent (<one month) smoker, HTN, HLP, family history of CAD, obesity. Risk Scores: Score 0 - 3: 2.5% MACE over next 6 weeks - Discharge Home Score 4 - 6: 20.3% MACE over next 6 weeks - Admit for Clinical Observation Score 7 - 10: 72.7% MACE over next 6 weeks - Early Invasive Strategies (YOLA NIELSEN MD) C/O Chest Pain: No (ANIA AVILEZ MD) Course & Med Decision Making: Course & Med Decision Making Pertinent Labs and Imaging studies reviewed. (See chart for details) Pt.urine very cloudy. Patient endorsed to at shift change. Impression: 1. Abdomen Pain 2. UTI 3. Anemia Hgb. 11.6 4. Marijuana and Tobacco Use [] (YOLA NIELSEN MD) Course & Med Decision Making Accepted care at shift change. Has small ovarian cyst. Urinary tract infection symptoms and laboratory evidence consistent with return infection. (ANIA AVILEZ MD) Dragon Disclaimer: Dragon Disclaimer: This electronic medical record was generated, in whole or in part, using a voice recognition dictation system. (YOLA NIELSEN MD) Departure Departure: Impression: Primary Impression: Ovarian cyst Additional Impression: UTI (urinary tract infection) Disposition: HOME / SELF CARE / HOMELESS Condition: STABLE Referrals: PCP,NO (PCP) Patient Instructions: Abdominal Pain Additional Instructions: Patient pending gonorrhea chlamydia at time of discharge. Discussed we will treat for urinary tract infection discussed return precautions. Scripts Hydrocodone/Acetaminophen (Hydrocodone-Acetamin 5-325 mg) 1 Each Tablet 1 EACH PO PRN Q6-8HRS PRN for PAIN for 3 Days, #10 TAB Prov: ANIA AVILEZ MD 10/31/20 Cephalexin (CEPHALEXIN) 500 Mg Tablet 1 TAB PO BID for antibioitic for 5 Days, #10 TAB Prov: ANIA AVILEZ MD 10/31/20 Dragon Disclaimer This chart was dictated in whole or in part using Voice Recognition software in a busy, high-work load, and often noisy Emergency Department environment. It may contain unintended and wholly unrecognized errors or omissions. (YOLA NIELSEN MD) YOLA NIELSEN MD October 31, 2020 04:47 ANIA AVILEZ MD October 31, 2020 08:59
[2020-10-31 04:50] VITALS: BP 120/64
[2020-10-31 05:52] LABS: BASO # 0.1 x10^3/uL (0.0-0.2); BASO % 1 % (0-3); EOS # 0.2 x10^3/uL (0.0-0.7); EOS % 2 % (0-3); HEMATOCRIT 35.3 % (36.0-47.0); HEMOGLOBIN 11.6 g/dL (12.0-15.5); LYMPH # 2.9 x10^3/uL (1.0-4.8); LYMPH % 27 % (24-48); MEAN CORPUSCULAR HEMOGLOBIN 30 pg (25-35); MEAN CORPUSCULAR HGB CONC 33 g/dL (31-37); MEAN CORPUSCULAR VOLUME 91 fL (79-100); MONO # 0.8 x10^3/uL (0.0-1.1); MONO % 8 % (0-9); NEUT % 64 % (31-73); PLATELET COUNT 295 x10^3/uL (140-400); RED BLOOD COUNT 3.87 x10^6/uL (3.50-5.40); RED CELL DISTRIBUTION WIDTH 14.1 % (11.5-14.5)
[2020-10-31 05:56] LABS: BARBITURATES NEG (NEG); BENZODIAZEPINES NEG (NEG); CANNABINOIDS POS (NEG); COCAINE NEG (NEG); METHADONE NEG (NEG); OPIATES NEG (NEG); PHENCYCLIDINE NEG (NEG)
[2020-10-31 05:57] LABS: CALCIUM 8.5 mg/dL (8.5-10.1); CREATININE 0.7 mg/dL (0.6-1.0); GFR 129.1; POTASSIUM 3.7 mmol/L (3.5-5.1)
[2020-10-31 06:00] LABS: AMPHETAMINE/METHAMPHETAMINE NEG (NEG)
[2020-10-31] MEDS ORDERED: CONTRAST GIVEN. MC PRN (06:00)
[2020-10-31 06:02] LABS: BILIRUBIN,URINE NEG (NEG); CLARITY,URINE HAZY; COLOR,URINE YELLOW; GLUCOSE,URINE NEG (NEG); NITRITE,URINE NEG (NEG); UROBILINOGEN,URINE 0.2 mg/dL (0.2 mg/dL)
[2020-10-31 06:03] LABS: ALBUMIN 3.6 g/dL (3.4-5.0); ALBUMIN/GLOBULIN RATIO 0.9 (1.0-1.7); DIRECT BILIRUBIN 0.1 mg/dL (0.0-0.2); TOTAL BILIRUBIN 0.2 mg/dL (0.2-1.0); TOTAL PROTEIN 7.5 g/dL (6.4-8.2)
[2020-10-31 06:06] LABS: BACTERIA,URINE FEW /HPF (0-FEW); SQUAMOUS EPITHELIAL CELL,UR FEW /LPF
[2020-10-31] MEDS: IV RINGERS SOLUTION,LACTATED 1,000 ML IV SCH (06:28)
[2020-10-31] MEDS: FAMOTIDINE 20 MG/2 ML VIAL IVP ONE (06:29)
[2020-10-31] MEDS: ONDANSETRON PF 4 MG/2 ML VIAL. IVP ONE (06:29)
[2020-10-31] MEDS: KETOROLAC 30 MG/ML VIAL. IVP ONE (06:29)
[2020-10-31] MEDS: MAGNESIUM HYDROXIDE 2,400 MG/30 ML ORAL.SUSP. PO ONE (06:30)
--- NOTE | 2020-10-31 06:46 | RAD ---
INDICATION: Reason: pain in the abdomen/ Spl. Instructions: / History: COMPARISON: None. IMPRESSION: 3 views of the chest and abdomen obtained. Cardiac silhouette is unremarkable. No focal airspace cons olidation or pulmonary edema. Air scattered throughout the large and small bowel in a nonspecific but not grossly obstructive pattern. Electronically signed by: Marc Roman MD (10/31/2020 6:44 AM) [id number]
[2020-10-31] MEDS ORDERED: cefTRIAXone SODIUM 1 GM VIAL ONE (07:06)
[2020-10-31] MEDS ORDERED: IV NORMAL SALINE 50ML 50 ML ONE (07:06)
[2020-10-31] MEDS: IOHEXOL 240 MG/ML 50ML VIAL. PO ONE (08:00)
--- NOTE | 2020-10-31 08:30 | RAD ---
CT abdomen and pelvis with contrast: Reason for examination: Severe left mid abdominal pain. Helical images were obtained through the abdomen and pelvis with intravenous administration of 75 cc Omnipaque 300 and oral contrast. Reconstruction was performed in sagittal and coronal planes. Exposure: One or more of the following individualized dose reduction techniques were utilized for thi s examination: 1. Automated exposure control 2. Adjustment of the mA and/or kV according to patient size 3. Use of iterative reconstruction technique. The lung bases are clear. The heart size is normal with no pericardial effusion evident. No abnormality seen at the liver, gallbladder, spleen, adrenal glands or pancreas. The abdominal aort a and inferior vena cava show no acute abnormalities. The colon shows no diverticulosis, diverticulit is or colitis. No abnormality seen at the appendix. The small intestinal tract shows no abnormal dila tation, wall thickening or obstruction. No abnormality seen at the stomach or duodenum. The kidneys s how no renal masses, renal calculi, hydronephrosis or evidence of obstructive uropathy. No abnormality seen at the bladder. There is fluid in the endometrial cavity. There appears to be a 2 cm hypodense lesion in the right ovary possibly representing a cyst and probable small follicles in the left ovary. No free fluid or free air is seen in the abdomen or pelvis. Several lymph nodes measu ring up to 2.4 cm in size are present in the inguinal regions bilaterally. No acute bony abnormalitie s are evident. IMPRESSION: Hypodense lesion in the right ovary measuring 2 cm in size which may represent a ovarian cyst. Probab le follicles in the left ovary. Fluid in the endometrial cavity. Lymph nodes in the inguinal regions bilaterally measuring up to 2.4 cm in size. No other focal abnormalities evident in the abdomen or pelvis. Electronically signed by: Katt Bergeron MD (10/31/2020 8:28 AM) DAM[place]
[2020-10-31] MEDS ORDERED: HYDR-2759 PO (08:59)
[2020-10-31] MEDS ORDERED: CEPH500T PO (08:59)
[2020-10-31] MEDS: IOHEXOL 300 MG/ML 75 ML VIAL. IV ONE (09:00)
== END 2020-10-31 09:15 | disposition home or self-care (01) ==
LOC: ER 04:40
DX: N39.0 Urinary tract infection, site not specified (principal); N83.201 Unspecified ovarian cyst, right side; D64.9 Anemia, unspecified; F41.9 Anxiety disorder, unspecified; F31.9 Bipolar disorder, unspecified; F20.9 Schizophrenia, unspecified; F17.210 Nicotine dependence, cigarettes, uncomplicated; Z87.440 Personal history of urinary (tract) infections; Z86.2 Personal history of diseases of the blood and blood-forming organs and certain disorders involving the immune mechanism
CPT/HCPCS: 36415; 74022; 74177; 80053; 80076; 80307; 81001; 81025; 83690; 85025; 87077; 87086; 87491; 87591; 96361; 96365; 96375; 99285; J0696; J1885; J2405; J3490; J7120; Q9966; Q9967

== ENCOUNTER 2020-11-04 22:02 | Emergency (ER) | payer OTHER ==
[~2020-11-04] VITALS: Ht 170.2 cm; Wt 92.0 kg
[~2020-11-04 22:02] MED LIST changes: +CEPH500T PO; +HYDR-2759 PO
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
[2020-11-04 22:50] VITALS: BP 120/68
--- NOTE | 2020-11-04 22:50 | RAD ---
XR FINGER(S)_RIGHT 2+VIEWS DATE: 11/04/2020 10:16 PM INDICATION: thumb pain, PROXIMAL / Spl. Instructions: / History: COMPARISON: None. FINDINGS: Bones: Age indeterminate first distal phalanx tiny volar plate avulsion. Joints: The joint spaces are normal. Miscellaneous: None. IMPRESSION: Age indeterminate first distal phalanx tiny volar plate avulsion fracture. Electronically signed by: Anshul Cavazos MD (11/04/2020 10:48 PM) CARLITA
== END 2020-11-04 22:50 | disposition home or self-care (01) ==
LOC: ER 22:02
DX: S63.601A Unspecified sprain of right thumb, initial encounter (principal); X58.XXXA Exposure to other specified factors, initial encounter; Y93.89 Activity, other specified; Y92.89 Other specified places as the place of occurrence of the external cause; Y99.8 Other external cause status
CPT/HCPCS: 29125; 73140; 99283-25

== ENCOUNTER 2021-01-07 10:05 | Emergency (ER) | payer OTHER ==
[~2021-01-07] VITALS: Ht 172.7 cm; Wt 89.2 kg
[2021-01-07 10:16] VITALS: BP 107/58
[2021-01-07] MEDS ORDERED: ALBUTEROL SULFATE 2.5 MG/3 ML NEBU. NEB ONE (10:30)
[2021-01-07] MEDS ORDERED: methylPREDNISolone SOD SUCC PF 125 MG/2 ML VIAL. IV ONE (10:30)
--- NOTE | 2021-01-07 10:35 | PHYS DOC ---
Past History Past Medical History: Anemia, Anxiety, Bipolar, Constipation, Depression, Schizophrenia, STD, UTI, Other Additional Past Medical Histor: ADHD, PTSD Past Surgical History: No Surgical History Smoking: Cigarettes Alcohol Use: Occasionally General Adult EDM: Chief Complaint: ASTHMA HPI: HPI: 20-year-old female presents with 2-day history of shortness of breath. The patient has mild intermittent asthma at baseline. She is not able to find her inhaler. Her breathing is worse today than yesterday. She decided to come in and for breathing treatment and for a new prescription for an inhaler. Patient denies chest pain or diaphoresis. No fever or chills. She has no other compl aints this time. Review of Systems: Review of Systems: Constitutional: Denies fever or chills Eyes: Denies change in visual acuity HENT: Denies nasal congestion or sore throat Respiratory: Dry cough with shortness of breath Cardiovascular: Denies chest pain or edema GI: Denies abdominal pain, nausea, vomiting, bloody stools or diarrhea : Denies dysuria Musculoskeletal: Denies back pain or joint pain Integument: Denies rash Neurologic: Denies headache, focal weakness or sensory changes Endocrine: Denies polyuria or polydipsia Lymphatic: Denies swollen glands Psychiatric: Denies depression or anxiety Allergies: Allergies: Allergies Uncoded Allergies Type Severity Reaction Last Updated Verified UNKNOWN ADHD MED Allergy Unknown 07/13/20 Physical Exam: PE: Constitutional: Well developed, well nourished, no acute distress, non-toxic appearance. [] HENT: Normocephalic, atraumatic, bilateral external ears normal, oropharynx moist, no oral exudates, nose normal. [] Eyes: PERRLA, EOMI, conjunctiva normal, no discharge. [] Neck: Normal range of motion, no tenderness, supple, no stridor. [] Cardiovascular: Heart rate regular rhythm, no murmur [] Lungs & Thorax: Bilateral breath sounds diminished throughout [] Abdomen: Bowel sounds normal, soft, no tenderness, no masses, no pulsatile masses. [] Skin: Warm, dry, no erythema, no rash. [] Back: No tenderness, no CVA tenderness. [] Extremities: No tenderness, no cyanosis, no clubbing, ROM intact, no edema. [] Neurologic: Alert and oriented X 3, normal motor function, normal sensory function, no focal deficits noted. [] Psychologic: Affect normal, judgement normal, mood normal. [] Current Patient Data: Vital Signs: Vital Signs Date Time Temp Pulse Resp B/P (MAP) Pulse Ox O2 Delivery O2 Flow Rate FiO2 01/07/21 10:16 98.8 73 18 107/58 98 Room Air EKG: EKG: [] Radiology/Procedures: Radiology/Procedures: [] Impressions: EXAMINATION: XR CHEST 1V CLINICAL HISTORY: Shortness of breath EXAM DATE/TIME: 01/07/2021 10:30 AM COMPARISON: None FINDINGS: Lines, Tubes, and Devices: None. Cardiomediastinal Silhouette: Within normal limits. Lungs and Pleura: No evidence of focal airspace consolidation, pleural effusion, or pneumothorax. Bones and Soft Tissues: No acute osseous abnormality. IMPRESSION: No evidence of acute cardiopulmonary abnormality. Electronically signed by: Rainer Springer DO (01/07/2021 10:52 AM) [id number] DICTATED AND SIGNED BY: RAINER SPRINGER DO DATE: 01/07/21 1052 CC: HERON BOLAND DO; PCP,NO ~MTH0 0 Heart Score: C/O Chest Pain: N/A Risk Factors: Risk Factors: DM, Current or recent (<one month) smoker, HTN, HLP, family history of CAD, obesity. Risk Scores: Score 0 - 3: 2.5% MACE over next 6 weeks - Discharge Home Score 4 - 6: 20.3% MACE over next 6 weeks - Admit for Clinical Observation Score 7 - 10: 72.7% MACE over next 6 weeks - Early Invasive Strategies Course & Med Decision Making: Course & Med Decision Making Pertinent Labs and Imaging studies reviewed. (See chart for details) The patient's labs are unremarkable. For her asthma have given her albuterol nebulizer treatment and 125 Solu-Medrol. We will discharge her with a prescription for albuterol. She is stable for discharge at this time. [] Dragon Disclaimer: Dragon Disclaimer: This electronic medical record was generated, in whole or in part, using a voice recognition dictation system. Departure Departure: Impression: Primary Impression: Asthma Qualified Codes: J45.21 - Mild intermittent asthma with (acute) exacerbation Disposition: HOME / SELF CARE / HOMELESS Condition: IMPROVED Referrals: PCP,NO (PCP) Patient Instructions: Asthma, Adult, [id number] Scripts Albuterol Sulfate (VENTOLIN HFA INHALER) 18 Gm Hfa.aer.ad 2 PUFF IH PRN Q4HRS PRN for FOR ASTHMA, #1 EACH 0 Refills Generic substitution of albuterol sulfate is authorized Prov: HERON BOLAND DO 01/07/21 HERON BOLAND DO Jan 07, 2021 10:35
--- NOTE | 2021-01-07 10:55 | RAD ---
EXAMINATION: XR CHEST 1V CLINICAL HISTORY: Shortness of breath EXAM DATE/TIME: 01/07/2021 10:30 AM COMPARISON: None FINDINGS: Lines, Tubes, and Devices: None. Cardiomediastinal Silhouette: Within normal limits. Lungs and Pleura: No evidence of focal airspace consolidation, pleural effusion, or pneumothorax. Bones and Soft Tissues: No acute osseous abnormality. IMPRESSION: No evidence of acute cardiopulmonary abnormality. Electronically signed by: Rainer Cummings DO (01/07/2021 10:52 AM) [id number]
[2021-01-07 10:59] LABS: BASO % 0 % (0-3); EOS # 0.1 x10^3/uL (0.0-0.7); EOS % 1 % (0-3); HEMATOCRIT 34.9 % (36.0-47.0); HEMOGLOBIN 11.6 g/dL (12.0-15.5); LYMPH # 1.7 x10^3/uL (1.0-4.8); LYMPH % 20 % (24-48); MEAN CORPUSCULAR HEMOGLOBIN 30 pg (25-35); MEAN CORPUSCULAR HGB CONC 33 g/dL (31-37); MEAN CORPUSCULAR VOLUME 91 fL (79-100); MONO # 0.5 x10^3/uL (0.0-1.1); MONO % 6 % (0-9); NEUT # 6.2 x10^3uL (1.8-7.7); NEUT % 74 % (31-73); PLATELET COUNT 288 x10^3/uL (140-400); RED BLOOD COUNT 3.85 x10^6/uL (3.50-5.40); RED CELL DISTRIBUTION WIDTH 13.7 % (11.5-14.5); WHITE BLOOD COUNT 8.5 x10^3/uL (4.0-11.0)
[2021-01-07 11:10] LABS: CALCIUM 8.7 mg/dL (8.5-10.1); CREATININE 0.7 mg/dL (0.6-1.0); GFR 129.1
[2021-01-07 11:16] LABS: ALBUMIN 3.8 g/dL (3.4-5.0); ALBUMIN/GLOBULIN RATIO 1.1 (1.0-1.7); TOTAL BILIRUBIN 0.3 mg/dL (0.2-1.0); TOTAL PROTEIN 7.2 g/dL (6.4-8.2)
[2021-01-07] MEDS ORDERED: ALBU2.5V8 IH (11:40)
== END 2021-01-07 12:00 | disposition home or self-care (01) ==
LOC: ER 10:05
DX: J45.21 Mild intermittent asthma with (acute) exacerbation (principal); F41.9 Anxiety disorder, unspecified; F31.9 Bipolar disorder, unspecified; F20.9 Schizophrenia, unspecified; F17.210 Nicotine dependence, cigarettes, uncomplicated; Z87.440 Personal history of urinary (tract) infections; Z86.2 Personal history of diseases of the blood and blood-forming organs and certain disorders involving the immune mechanism
CPT/HCPCS: 36415; 71045; 80053; 85025; 94640; 96374; 99284; J2930; J7613

== ENCOUNTER → 2021-03-09 | Emergency (ER) | payer OTHER ==
[~2021-03-09] VITALS: Ht 172.7 cm; Wt 89.7 kg
[~2021-03-09] MED LIST changes: +ALBU2.5V8 IH; +CEFD300C PO
[2021-03-09 20:11] VITALS: BP 117/63
--- NOTE | 2021-03-09 20:29 | PHYS DOC ---
Past History Past Medical History: Anemia, Anxiety, Bipolar, Constipation, Depression, Schizophrenia, STD, UTI, Other Additional Past Medical Histor: ADHD, PTSD Past Surgical History: No Surgical History Smoking: Cigarettes Alcohol Use: Occasionally General Adult EDM: Chief Complaint: UPPER EXTREMITY PAIN HPI: HPI: 20-year-old female presents with left elbow pain. The patient was "playing around with her " when her arm got twisted and it started to hurt. She knows that she fell to the ground but is not sure exactly how she landed. She now has pain at the left elbow joint anteriorly and posteriorly. She is able to move her arm. She denies any numbness, tingling, or altered sensation. She has no other injuries at this time. Review of Systems: Review of Systems: Constitutional: Denies fever or chills Eyes: Denies change in visual acuity HENT: Denies nasal congestion or sore throat Respiratory: Denies cough or shortness of breath Cardiovascular: Denies chest pain or edema GI: Denies abdominal pain, nausea, vomiting, bloody stools or diarrhea : Denies dysuria Musculoskeletal: Left elbow pain Integument: Denies rash Neurologic: Denies headache, focal weakness or sensory changes Endocrine: Denies polyuria or polydipsia Lymphatic: Denies swollen glands Psychiatric: Denies depression or anxiety Allergies: Allergies: Allergies Coded Allergies Type Severity Reaction Last Updated Verified carbamazepine Allergy Unknown 03/09/21 Yes Physical Exam: PE: Constitutional: Well developed, well nourished, obese, no acute distress, non- toxic appearance. [] HENT: Normocephalic, atraumatic, bilateral external ears normal, oropharynx moist, no oral exudates, nose normal. [] Eyes: PERRLA, EOMI, conjunctiva normal, no discharge. [] Neck: Normal range of motion, no tenderness, supple, no stridor. [] Cardiovascular: Heart rate regular rhythm, no murmur [] Lungs & Thorax: Bilateral breath sounds clear to auscultation [] Abdomen: Bowel sounds normal, soft, no tenderness, no masses, no pulsatile masses. [] Skin: Warm, dry, no erythema, no rash. [] Back: No tenderness, no CVA tenderness. [] Extremities: Tenderness over the left elbow, slight swelling compared to right, no obvious deformity. Range of motion deferred due to discomfort. [] Neurologic: Alert and oriented X 3, normal motor function, normal sensory function, no focal deficits noted. [] Psychologic: Affect normal, judgement normal, mood normal. [] Current Patient Data: Vital Signs: Vital Signs Date Time Temp Pulse Resp B/P (MAP) Pulse Ox O2 Delivery O2 Flow Rate FiO2 03/09/21 20:11 98.3 79 16 117/63 (81) 100 Room Air EKG: EKG: [] Radiology/Procedures: Radiology/Procedures: [] Impressions: Left elbow x-rays 3 views HISTORY: Left elbow injury and pain. FINDINGS: No abnormal elevation of the fat pads to suggest the presence of a joint effusion or radiographically occult fracture. No fracture or dislocation of the elbow evident. The soft tissues are unremarkable. IMPRESSION: No acute osseous injury. Electronically signed by: Trip Newsome MD (03/09/2021 8:41 PM) [id number] DICTATED AND SIGNED BY: TRIP NEWSOME MD DATE: 03/09/212039 CC: HERON BOLAND DO; PCP,NO ~MTH0 0 Heart Score: C/O Chest Pain: N/A Risk Factors: Risk Factors: DM, Current or recent (<one month) smoker, HTN, HLP, family history of CAD, obesity. Risk Scores: Score 0 - 3: 2.5% MACE over next 6 weeks - Discharge Home Score 4 - 6: 20.3% MACE over next 6 weeks - Admit for Clinical Observation Score 7 - 10: 72.7% MACE over next 6 weeks - Early Invasive Strategies Course & Med Decision Making: Course & Med Decision Making Pertinent Labs and Imaging studies reviewed. (See chart for details) The patient's elbow x-ray is negative for fracture. This is likely just an elbow strain. I advised supportive care such as ice, rest, ibuprofen. She is stable for discharge at this time. If the pain does not improve the next couple days she will need to follow-up with orthopedics. [] Dragon Disclaimer: Dragon Disclaimer: This electronic medical record was generated, in whole or in part, using a voice recognition dictation system. Departure Departure: Impression: Primary Impression: Strain of elbow, left Disposition: HOME / SELF CARE / HOMELESS Condition: STABLE Referrals: PCP,NO (PCP) Patient Instructions: Elbow Injury-Brief HERON BOLAND DO Mar 09, 2021 20:29
--- NOTE | 2021-03-09 20:43 | RAD ---
Left elbow x-rays 3 views HISTORY: Left elbow injury and pain. FINDINGS: No abnormal elevation of the fat pads to suggest the presence of a joint effusion or radiog raphically occult fracture. No fracture or dislocation of the elbow evident. The soft tissues are unr emarkable. IMPRESSION: No acute osseous injury. Electronically signed by: Trip Newsome MD (03/09/2021 8:41 PM) [id number]
== END | disposition home or self-care (01) ==
LOC: ER 20:04
DX: S46.812A Strain of other muscles, fascia and tendons at shoulder and upper arm level, left arm, initial encounter (principal); F41.9 Anxiety disorder, unspecified; F31.9 Bipolar disorder, unspecified; F20.9 Schizophrenia, unspecified; F17.210 Nicotine dependence, cigarettes, uncomplicated; Z87.440 Personal history of urinary (tract) infections; Z88.8 Allergy status to other drugs, medicaments and biological substances; W18.39XA Other fall on same level, initial encounter; Y93.89 Activity, other specified; Y92.89 Other specified places as the place of occurrence of the external cause; Y99.8 Other external cause status
CPT/HCPCS: 73080; 99283

== ENCOUNTER 2021-03-11 11:40 | Emergency (ER) | payer OTHER ==
[~2021-03-11] VITALS: Ht 172.7 cm; Wt 89.7 kg
[~2021-03-11 11:40] MED LIST changes: -CEFD300C PO
[2021-03-11 12:04] VITALS: BP 115/68
--- NOTE | 2021-03-11 12:09 | PHYS DOC ---
Past History Past Medical History: Anemia, Anxiety, Bipolar, Constipation, Depression, Schizophrenia, STD, UTI, Other Additional Past Medical Histor: ADHD, PTSD Past Surgical History: No Surgical History Smoking: Cigarettes Alcohol Use: Occasionally Adult General Chief Complaint Chief Complaint: ABDOMINAL PAIN HPI HPI Patient is a 20 year old female who presents with abdominal pain, nausea, vomiting. Started yesterday. Pain is mostly upper abdominal in the midline. Does not radiate. Associated with nausea. Has been vomiting several times. After a few episode she noticed some slight blood tingeing to her vomitus. No fevers or chills. No diarrhea. No dysuria, urgency, frequency. No vaginal bleeding. LMP sometime at the beginning of January. She thinks that she is late. Does not use contraception. In a monogamous relationship. No vaginal discharge, itching, or malodor. No abdominal surgical history. Has had pains like this in the past, but it has "been a while." Review of Systems Review of Systems Constitutional: Denies fever or chills [] Eyes: Denies change in visual acuity, redness, or eye pain [] HENT: Denies nasal congestion or sore throat [] Respiratory: Denies cough or shortness of breath [] Cardiovascular: No additional information not addressed in HPI [] GI: Reports abdominal pain, nausea, vomiting, small blood-tinged emesis. No diarrhea. No bloody stools or melena. [] : Denies dysuria or hematuria [] Musculoskeletal: Denies back pain or joint pain [] Integument: Denies rash or skin lesions [] Neurologic: Denies headache, focal weakness or sensory changes [] Endocrine: Denies polyuria or polydipsia [] All other systems were reviewed and found to be within normal limits, except as documented in this note. Allergies Allergies Allergies Coded Allergies Type Severity Reaction Last Updated Verified carbamazepine Allergy Unknown 03/09/21 Yes Physical Exam Physical Exam Constitutional: Well developed, well nourished, no acute distress, non-toxic appearance. [] HENT: Normocephalic, atraumatic, Eyes: PERRLA, EOMI, conjunctiva normal, no discharge. [] Neck: Normal range of motion, no tenderness, supple, no stridor. [] Cardiovascular:Heart rate regular rhythm, no murmur [] Lungs & Thorax: Bilateral breath sounds clear to auscultation [] Abdomen: Diffuse abdominal tenderness. Nonfocal. skin: Warm, dry, no erythema, no rash. [] Back: No tenderness, no CVA tenderness. [] Extremities: No tenderness, no cyanosis, no clubbing, ROM intact, no edema. [] Neurologic: Alert and oriented X 3, normal motor function, normal sensory function, no focal deficits noted. [] Psychologic: Affect normal, judgement normal, mood normal. [] EKG EKG [] Radiology/Procedures Radiology/Procedures [] Heart Score C/O Chest Pain: No Risk Factors: Risk Factors: DM, Current or recent (<one month) smoker, HTN, HLP, family history of CAD, obesity. Risk Scores: Risk Factors: DM, Current or recent (<one month) smoker, HTN, HLP, family history of CAD, obesity. Course & Med Decision Making Course & Med Decision Making Pertinent Labs and Imaging studies reviewed. (See chart for details) Patient is a 20-year-old female who presents with 1 day of upper abdominal pain, nausea, vomiting. Had small amount of blood streaking after several episodes of emesis. On arrival is afebrile, hemodynamically stable, well-appearing. Think the blood streaking is most likely Anusha-Mac/esophageal irritation from repetitive vomiting. Her abdominal examination is nonfocal. We will treat with Zofran, and check UA, urine , CBC, CMP, lipase. Defer abdominal imaging at this time. 1208 No evidence of pancreatitis on lipase. No leukocytosis. Mild anemia on labs. CMP unremarkable. UA with evidence of urinary tract infection. Will treat with a course of cefdinir. Return precautions discussed. Given contact info for a PCP Clinic in [facility] to hopefully establish care. [id number] Miguel Disclaimer Miguel Disclaimer This electronic medical record was generated, in whole or in part, using a voice recognition dictation system. Departure Departure: Impression: Primary Impression: UTI (urinary tract infection) Additional Impression: Nausea & vomiting Disposition: HOME / SELF CARE / HOMELESS Condition: STABLE Referrals: PCP,NO (PCP) Patient Instructions: Urinary Tract Infection Additional Instructions: It appears that you may have a urinary tract infection. I like to treat you with a course of antibiotics. Please take the entire course of antibiotics as prescribed. If you develop fever, chills, worsening pain, worsening vomiting, or other new/concerning symptoms you can return to the emergency department at any time. Since you do not have a PCP, please call the number for the [facility] at [phone]. Scripts Cefdinir (CEFDINIR) 300 Mg Capsule 1 CAP PO BID for UTI for 7 Days, #14 CAP Prov: ELIAS CROCKER MD 03/11/21 Problem Qualifiers ELIAS CROCKER MD Mar 11, 2021 12:09
[2021-03-11] MEDS ORDERED: KETOROLAC 15 MG/ML VIAL. IVP ONE (12:15)
[2021-03-11] MEDS ORDERED: ONDANSETRON PF 4 MG/2 ML VIAL. IVP ONE (12:15)
[2021-03-11 12:47] LABS: BASO % 0 % (0-3); EOS # 0.1 x10^3/uL (0.0-0.7); EOS % 1 % (0-3); HEMATOCRIT 34.8 % (36.0-47.0); HEMOGLOBIN 11.4 g/dL (12.0-15.5); LYMPH # 1.6 x10^3/uL (1.0-4.8); LYMPH % 18 % (24-48); MEAN CORPUSCULAR HEMOGLOBIN 30 pg (25-35); MEAN CORPUSCULAR HGB CONC 33 g/dL (31-37); MEAN CORPUSCULAR VOLUME 92 fL (79-100); MONO # 0.5 x10^3/uL (0.0-1.1); MONO % 6 % (0-9); NEUT # 6.4 x10^3uL (1.8-7.7); NEUT % 74 % (31-73); PLATELET COUNT 257 x10^3/uL (140-400); RED BLOOD COUNT 3.78 x10^6/uL (3.50-5.40); RED CELL DISTRIBUTION WIDTH 14.3 % (11.5-14.5); WHITE BLOOD COUNT 8.7 x10^3/uL (4.0-11.0)
[2021-03-11 12:58] LABS: CALCIUM 9.1 mg/dL (8.5-10.1); CREATININE 0.7 mg/dL (0.6-1.0); GFR 129.1; POTASSIUM 3.7 mmol/L (3.5-5.1)
[2021-03-11 13:03] LABS: ALBUMIN 3.6 g/dL (3.4-5.0); TOTAL BILIRUBIN 0.6 mg/dL (0.2-1.0); TOTAL PROTEIN 7.3 g/dL (6.4-8.2)
[2021-03-11 13:27] LABS: BILIRUBIN,URINE NEG (NEG); CLARITY,URINE HAZY; COLOR,URINE YELLOW; GLUCOSE,URINE NEG (NEG); NITRITE,URINE NEG (NEG); UROBILINOGEN,URINE 0.2 mg/dL (0.2 mg/dL)
[2021-03-11 13:28] LABS: SQUAMOUS EPITHELIAL CELL,UR FEW /LPF
[2021-03-11 13:29] LABS: BACTERIA,URINE MOD /HPF (0-FEW); WBC,URINE >40 /HPF (0-4)
[2021-03-11] MEDS ORDERED: CEFD300C PO (13:36)
== END 2021-03-11 14:09 | disposition home or self-care (01) ==
LOC: ER 11:40
DX: N39.0 Urinary tract infection, site not specified (principal); F17.210 Nicotine dependence, cigarettes, uncomplicated
CPT/HCPCS: 36415; 80053; 81001; 81025; 83690; 85025; 87086; 96374; 96375; 99284; J1885; J2405

== ENCOUNTER → 2021-03-24 | Emergency (ER) | payer OTHER ==
[~2021-03-24] VITALS: Ht 172.7 cm; Wt 86.8 kg
[~2021-03-24] MED LIST changes: +CEFD300C PO
[2021-03-24 22:39] VITALS: BP 102/54
--- NOTE | 2021-03-24 23:30 | PHYS DOC ---
Past History Past Medical History: Anemia, Anxiety, Bipolar, Constipation, Depression, Schizophrenia, STD, UTI, Other Additional Past Medical Histor: ADHD, PTSD Past Surgical History: No Surgical History Smoking: Cigarettes Alcohol Use: Rarely General Adult EDM: Chief Complaint: THUMB HPI: HPI: Patient is a [age] year old [sex] who presents with [] Review of Systems: Review of Systems: Constitutional: Denies fever or chills Eyes: Denies redness or eye pain HENT: Denies nasal congestion or sore throat Respiratory: Denies cough or shortness of breath Cardiovascular: Denies chest pain or palpitations GI: Denies abdominal pain, nausea, or vomiting : Denies dysuria or hematuria Musculoskeletal: Denies back pain or joint pain Integument: Denies rash or skin lesions Neurologic: Denies headache, focal weakness or sensory changes Complete systems were reviewed and found to be within normal limits, except as documented in this note. Current Medications: Current Meds: Current Medications Medications (Trade) Dose Ordered Sig/Lata Start Time Stop Time Status Last Admin Dose Admin Acetaminophen (Tylenol) 500 mg 1X ONCE 03/24/21 23:30 03/24/21 23:31 UNV Allergies: Allergies: Allergies Coded Allergies Type Severity Reaction Last Updated Verified carbamazepine Allergy Unknown 03/09/21 Yes Physical Exam: PE: Constitutional: Well developed, well nourished, no acute distress, non-toxic appearance HENT: Normocephalic, atraumatic Eyes: PERRL, EOMI, conjunctiva normal, no discharge Neck: Normal range of motion, no tenderness, supple Lungs & Thorax: No respiratory distress, equal chest rise and fall Abdomen: Soft, no tenderness Skin: Warm, dry, no erythema, no rash Back: No tenderness, no CVA tenderness Extremities: No tenderness, ROM intact, no edema Neurologic: Alert and oriented X 3, normal motor function, normal sensory function, no focal deficits noted Psychologic: Affect normal, judgment normal Current Patient Data: Vital Signs: Vital Signs Date Time Temp Pulse Resp B/P (MAP) Pulse Ox O2 Delivery O2 Flow Rate FiO2 03/24/21 22:39 98.5 59 18 102/54 (70) Room Air EKG: EKG: [] Radiology/Procedures: Radiology/Procedures: [] Heart Score: C/O Chest Pain: N/A Course & Med Decision Making: Course & Med Decision Making Pertinent Imaging studies reviewed. (See chart for details) Patient stable for discharge with outpatient follow-up with PCP/orthopedics. Orthopedic referral provided. Discussed findings and plan with patient, who acknowledges understanding and agreement. Miguel Disclaimer: Miguel Disclaimer: This electronic medical record was generated, in whole or in part, using a voice recognition dictation system. Departure Departure: Impression: Primary Impression: Left thumb sprain Qualified Codes: S63.642A - Sprain of metacarpophalangeal joint of left thumb, initial encounter Disposition: HOME / SELF CARE / HOMELESS Condition: STABLE Referrals: PCP,NO (PCP) YOLA ELIZALDE MD Patient Instructions: Thumb Sprain Additional Instructions: Ice area of discomfort 20 minutes on then leave off next 20 minutes. Repeat several times daily for the next few days. Use [id number] ibuprofen and or Tylenol for pain or discomfort. NERY MORALES DO Mar 24, 2021 23:30
[2021-03-24] MEDS: ACETAMINOPHEN 500 MG TABLET PO ONE (23:43)
--- NOTE | 2021-03-24 23:51 | RAD ---
EXAM: , Oblique and lateral views of the left hand DATE: 03/24/2021 11:29 PM INDICATION: Reason: Pain to left thumb radiating into palm of hand / Spl. Instructions: / History: . COMPARISON: No Prior FINDINGS/ IMPRESSION: 1. No evidence of acute fracture or dislocation. 2. Joint spaces are preserved without significant degenerative/proliferative change. Electronically signed by: Andre Boone MD (03/24/2021 11:49 PM) BESSIE
== END | disposition home or self-care (01) ==
LOC: ER 22:08
DX: S63.642A Sprain of metacarpophalangeal joint of left thumb, initial encounter (principal); F41.9 Anxiety disorder, unspecified; F31.9 Bipolar disorder, unspecified; F20.9 Schizophrenia, unspecified; Z86.2 Personal history of diseases of the blood and blood-forming organs and certain disorders involving the immune mechanism; Z87.440 Personal history of urinary (tract) infections; Z88.8 Allergy status to other drugs, medicaments and biological substances; F17.210 Nicotine dependence, cigarettes, uncomplicated; X58.XXXA Exposure to other specified factors, initial encounter; Y93.89 Activity, other specified; Y92.89 Other specified places as the place of occurrence of the external cause; Y99.8 Other external cause status
CPT/HCPCS: 29130; 73130; 99283

== ENCOUNTER 2021-04-10 08:14 | Emergency (ER) | payer OTHER ==
[2021-03-24 22:39] VITALS: BP 102/54
[~2021-04-10] VITALS: Ht 172.7 cm; Wt 86.8 kg
[2021-04-10] MEDS ORDERED: LORA10TA33 PO (08:47)
--- NOTE | 2021-04-10 08:47 | PHYS DOC ---
Past History Past Medical History: Anemia, Anxiety, Bipolar, Constipation, Depression, Schizophrenia, STD, UTI, Other Additional Past Medical Histor: ADHD, PTSD Past Surgical History: No Surgical History Smoking: Cigarettes Alcohol Use: Rarely Adult General Chief Complaint Chief Complaint: SKIN RASH/ABSCESS HPI HPI Patient is a 20-year-old female presenting for [facility]. Onset was yesterday evening without any known inciting event, trauma, ingestion, exposure or other known stimuli. Nothing known makes better or worse. Denies being in any pain just reports itching to bilateral upper extremities and some in left shoulder. She has not tried anything in attempt to alleviate her symptoms. She has never had this before. She has no history of anaphylaxis, no known allergies to any medications or environmental allergens. She has not had no fever, changes in vision, chest pain, shortness of breath, abdominal pain, changes in motor or s ensory or neuro function Review of Systems Review of Systems Fourteen body systems of review of systems have been reviewed. See HPI for pertinent positives and negative responses, other [place] all other systems are negative, non-pertinent or non-contributory Allergies Allergies Allergies Coded Allergies Type Severity Reaction Last Updated Verified carbamazepine Allergy Unknown 03/09/21 Yes Physical Exam Physical Exam Constitutional: Well developed, well nourished, no acute distress, non-toxic appearance. HENT: Normocephalic, atraumatic, bilateral external ears normal, oropharynx moist, no oral exudates, nose normal. Eyes: PERRLA, EOMI, conjunctiva normal, no discharge. Neck: Normal range of motion, no tenderness, supple, no stridor. Cardiovascular: Heart rate regular, sinus rhythm, no murmurs rubs or gallops Lungs & Thorax: Bilateral breath sounds clear to auscultation Abdomen: Bowel sounds normal, soft, no tenderness, no masses, no pulsatile masses. Nonsurgical abdomen, no peritoneal signs Skin: Warm, dry, no erythema, no rash. Back: No tenderness, no CVA tenderness. Extremities: No tenderness, no cyanosis, no clubbing, ROM intact, no edema. Neurologic: Alert and oriented X 3, grossly normal motor & sensory function, no focal deficits noted. Psychologic: Affect normal, judgement normal, mood normal. EKG EKG [] Radiology/Procedures Radiology/Procedures [] Heart Score C/O Chest Pain: No Risk Factors: Risk Factors: DM, Current or recent (<one month) smoker, HTN, HLP, family history of CAD, obesity. Risk Scores: Risk Factors: DM, Current or recent (<one month) smoker, HTN, HLP, family history of CAD, obesity. Course & Med Decision Making Course & Med Decision Making ABCs unremarkable HPI and comprehensive physical examination nonconcerning for any emergent or surgical issues No obvious ureteric area/dermatitis present. She is just having nonspecific pruritus. She has not taken anything such as Benadryl or other antihistamine. I advised her to start daily Zyrtec or equivalent with instructions to use hypoallergenic soaps and lotions Patient has good access to care with outpatient primary care physician. Close outpatient follow-up advised. Strict return precautions discussed and understood by patient and significant other at bedside prior to departure Miguel Disclaimer [place] Disclaimer This electronic medical record was generated, in whole or in part, using a voice recognition dictation system. Departure Departure: Impression: Primary Impression: Skin problem Disposition: HOME / SELF CARE / HOMELESS Condition: STABLE Referrals: PCP,NO (PCP) Additional Instructions: As discussed prior to ER departure, your vitals and physical examination were nonconcerning for any emergent or surgical issues Your skin findings were nonconcerning of any infection or other issue that might require antibiotics or other high risk medications or intervention As instructed, please take Zyrtec or equivalent medication and use hypoallergenic lotions and soaps going forward It is advise you contact your primary care physician Monday to review ER visit today and need for close outpatient follow-up Any concerning signs or symptoms present prior to outpatient follow-up please do not hesitate to come back for repeat evaluation Scripts Loratadine (ALAVERT) 10 Mg Tab.rapdis 10 MG PO DAILY for allergies for 30 Days, #30 TAB Prov: INGRID CARTAGENA DO 04/10/21 INGRID CARTAGENA DO Apr 10, 2021 08:47
== END 2021-04-10 08:58 | disposition home or self-care (01) ==
LOC: ER 08:14
DX: R21 Rash and other nonspecific skin eruption (principal); F17.210 Nicotine dependence, cigarettes, uncomplicated
CPT/HCPCS: 99282

== ENCOUNTER 2021-04-15 00:20 | Emergency (ER) | payer OTHER ==
[~2021-04-15] VITALS: Ht 174 cm; Wt 93.6 kg
[~2021-04-15 00:20] MED LIST changes: +LORA10TA33 PO
[2021-04-15] MEDS ORDERED: DEXAMETHASONE SOD PHOS 10 MG/ML VIAL. ONE (01:01)
--- NOTE | 2021-04-15 01:02 | PHYS DOC ---
Past History Past Medical History: Anemia, Anxiety, Bipolar, Constipation, Depression, Schizophrenia, STD, UTI, Other Additional Past Medical Histor: ADHD, PTSD Past Surgical History: No Surgical History Smoking: Cigarettes Alcohol Use: None Adult General Chief Complaint Chief Complaint: DIFFICULTY SWALLOWING HPI HPI Patient is a 20-year-old female with a past medical history significant for anxiety, and bipolar who presents with a chief complaint of sore throat/itchy throat over the last week or so. Denies any headache, changes in vision, nasal congestion, cough, chest pain, shortness of breath, abdominal pain, nausea, vomiting, diarrhea. States she had not taken any medications for this or seen a physician. Denies any recent traumas, travels, illnesses, fevers, rash. States she is able to eat and drink normally. States she is making urine and stool normally for her. Review of Systems Review of Systems Review of systems otherwise unremarkable except noted in HPI Allergies Allergies Allergies Coded Allergies Type Severity Reaction Last Updated Verified carbamazepine Allergy Unknown 03/09/21 Yes Physical Exam Physical Exam Constitutional: Well developed, well nourished, no acute distress, non-toxic appearance. [] HENT: Normocephalic, atraumatic, bilateral external ears normal, bilateral tympanic membranes normal, oropharynx moist, mild posterior oropharyngeal erythema with no edema, no oral exudates, nose normal. [] Eyes: conjunctiva normal, no discharge. [] Neck: Normal range of motion, no tenderness, supple, no stridor, no lymphadenopathy. [] Cardiovascular:Heart rate regular rhythm, no murmur [] Lungs & Thorax: Bilateral breath sounds clear to auscultation [] Abdomen: soft, no tenderness, no masses, no pulsatile masses. [] Skin: Warm, dry, no erythema, no rash. [] Neurologic: Alert and oriented X 3, normal motor function, normal sensory function, no focal deficits noted. [] Psychologic: Affect normal, judgement normal, mood normal. [] Current Patient Data Vital Signs Vital Signs Date Time Temp Pulse Resp B/P (MAP) Pulse Ox O2 Delivery O2 Flow Rate FiO2 04/15/21 00:23 97.4 18 98/62 (74) 100 Room Air EKG EKG [] Radiology/Procedures Radiology/Procedures [] Heart Score C/O Chest Pain: No Risk Factors: Risk Factors: DM, Current or recent (<one month) smoker, HTN, HLP, family history of CAD, obesity. Risk Scores: Risk Factors: DM, Current or recent (<one month) smoker, HTN, HLP, family history of CAD, obesity. Course & Med Decision Making Course & Med Decision Making Patient is a 20-year-old female who presents with a week of sore throat/itchy throat and possible seasonal allergy symptoms Vital signs not concerning. Physical exam noted above. Given dose of steroids. Discussed seasonal allergy management at home. Advised to follow-up with primary care physician in the morning and set up a follow-up. Gave return precautions to the ED. Patient grateful, verbalized understanding and agreed with plan of discharge. [] Dragon Disclaimer Dragon Disclaimer This electronic medical record was generated, in whole or in part, using a voice recognition dictation system. Departure Departure: Impression: Primary Impression: Seasonal allergic reaction Disposition: HOME / SELF CARE / HOMELESS Condition: GOOD Referrals: PCP,JEFFRY (PCP) SONJA KRAMER Patient Instructions: Allergies, Generic Additional Instructions: Thank you for coming into the emergency department tonight and allowing us to take care of you. Please read the attached information carefully to go back over some of the things we discussed. Please continue [id number] Claritin or Zyrtec for your allergic symptoms at home and you can use Benadryl at night as needed. Please follow-up with your primary care physician first thing in the morning to update them on your ED visit and set up a follow-up as needed. Please come back to the ED with new or concerning symptoms as discussed. MONICA CONTI MD Apr 15, 2021 01:02
[2021-04-15 01:22] VITALS: BP 100/65
[2021-04-15] MEDS ORDERED: DEXAMETHASONE SOD PHOS 10 MG/ML VIAL. PO ONE (01:30)
[2021-04-15] MEDS ORDERED: ALBU2.5V8 IH (23:39)
== END 2021-04-15 01:36 | disposition home or self-care (01) ==
LOC: ER 00:20
DX: J30.2 Other seasonal allergic rhinitis (principal); F41.9 Anxiety disorder, unspecified; F31.9 Bipolar disorder, unspecified; F20.9 Schizophrenia, unspecified; F17.210 Nicotine dependence, cigarettes, uncomplicated; Z87.440 Personal history of urinary (tract) infections; Z88.8 Allergy status to other drugs, medicaments and biological substances
CPT/HCPCS: 99283; J1100

== ENCOUNTER 2021-04-15 23:28 | Emergency (ER) | payer OTHER ==
[~2021-04-15] VITALS: Ht 174 cm; Wt 93.6 kg
[2021-04-15] MEDS ORDERED: ALBU2.5V8 IH (23:39)
--- NOTE | 2021-04-15 23:39 | PHYS DOC ---
Past History Past Medical History: Anemia, Anxiety, Bipolar, Constipation, Depression, Schizophrenia, STD, UTI, Other Additional Past Medical Histor: ADHD, PTSD Past Surgical History: No Surgical History Smoking: Cigarettes Alcohol Use: None Adult General HPI HPI Patient is a 20-year-old female with a past medical history of asthma who presents to the emergency department with a chief complaint of asthma exacerbation and no albuterol at home. States she has had some mild wheeze over the last day. Denies any recent traumas, travels, illnesses, fevers, chest pain, abdominal pain, nausea, vomiting, dysuria, hematuria or blood in stool. Review of Systems Review of Systems Constitutional: Denies fever or chills [] Eyes: Denies change in visual acuity, redness, or eye pain [] HENT: Denies nasal congestion or sore throat [] Respiratory: Denies cough or shortness of breath [] Cardiovascular: No additional information not addressed in HPI [] GI: Denies abdominal pain, nausea, vomiting, bloody stools or diarrhea [] : Denies dysuria or hematuria [] Musculoskeletal: Denies back pain or joint pain [] Integument: Denies rash or skin lesions [] Neurologic: Denies headache, focal weakness or sensory changes [] Endocrine: Denies polyuria or polydipsia [] All other systems were reviewed and found to be within normal limits, except as documented in this note. Allergies Allergies Allergies Coded Allergies Type Severity Reaction Last Updated Verified carbamazepine Allergy Unknown 03/09/21 Yes Physical Exam Physical Exam Constitutional: Well developed, well nourished, no acute distress, non-toxic appearance. [] HENT: Normocephalic, atraumatic, oropharynx moist, Eyes: PERRLA, EOMI, conjunctiva normal, no discharge. [] Neck: Normal range of motion, no tenderness, supple, no stridor, no lymphadenopathy. [] Cardiovascular:Heart rate regular rhythm, no murmur [] Lungs & Thorax: Very mild end expiratory wheeze, no increased work of breathing, no tachypnea Skin: Warm, dry, no erythema, no rash. [] Extremities: No tenderness, ROM intact, no edema. [] Neurologic: Alert and oriented X 3, no focal deficits noted. [] Psychologic: Affect normal, judgement normal, mood normal. [] EKG EKG [] Radiology/Procedures Radiology/Procedures [] Heart Score C/O Chest Pain: No Risk Factors: Risk Factors: DM, Current or recent (<one month) smoker, HTN, HLP, family history of CAD, obesity. Risk Scores: Risk Factors: DM, Current or recent (<one month) smoker, HTN, HLP, family history of CAD, obesity. Course & Med Decision Making Course & Med Decision Making Patient is a 20-year-old female presents with a chief complaint of asthma exacerbation in need of prescription for albuterol Vital signs not concerning. Physical exam noted above. Given steroids, breathing treatment. Chest x-ray not concerning. Given albuterol inhaler with spacer and RT at bedside for instruction and demonstration on use. Gave prescription for albuterol. Gave contact information for local primary care physicians as well as resources for local free clinics. Advised to call in the morning to set up a follow-up appointment. Gave return precautions to the ED. Patient grateful, verbalized understanding and agreed with plan of discharge. Dragon Disclaimer Dragon Disclaimer This electronic medical record was generated, in whole or in part, using a voice recognition dictation system. Departure Departure: Impression: Primary Impression: Asthma exacerbation Additional Impression: Prescription refill Disposition: HOME / SELF CARE / HOMELESS Condition: GOOD Referrals: PCP,JEFFRY (PCP) SONJA KRAMER Patient Instructions: Asthma Attacks, Prevention, Asthma, Adult Additional Instructions: Thank you for coming into the emergency department tonight and allowing us to take care of you. Please read the attached information carefully to go back over things we discussed. Please use your albuterol as prescribed and demonstrated. Please call in the morning to establish care with a primary care physician to set up an appointment and discuss need for chronic asthma management. Please come back with new or concerning symptoms as we discussed. Scripts Albuterol Sulfate (PROAIR HFA INHALER) 8.5 Gm Hfa.aer.ad 2 PUFF IH PRN Q4-6HRS PRN for wheezing for 21 Days, #5 INHALER 0 Refills Prov: MONICA CONTI MD 04/15/21 Problem Qualifiers MONICA CONTI MD Apr 15, 2021 23:39
[2021-04-15] MEDS ORDERED: ALBUTEROL SULFATE 8GM INHALER. INH ONE (23:45)
[2021-04-15] MEDS ORDERED: IPRATRPIUM/ALBUTEROL 0.5/2.5MG 3 ML NEBU. NEB ONE (23:45)
--- NOTE | 2021-04-15 23:56 | RAD ---
EXAMINATION: XR CHEST 1V CLINICAL HISTORY: Shortness of breath EXAM DATE/TIME: 04/15/2021 11:33 PM COMPARISON: 01/07/2021 FINDINGS: Lines, Tubes, and Devices: None. Cardiomediastinal Silhouette: Within normal limits. Lungs and Pleura: No evidence of focal airspace consolidation, pleural effusion, or pneumothorax. Bones and Soft Tissues: No acute osseous abnormality. IMPRESSION: No evidence of acute cardiopulmonary abnormality. Electronically signed by: Rainer Cummings DO (04/15/2021 11:54 PM) YENI
[2021-04-16 00:30] VITALS: BP 127/64
[2021-04-16] MEDS ORDERED: diphenhydrAMINE HCL 25 MG CAPSULE PO ONE (01:00)
== END 2021-04-16 00:30 | disposition home or self-care (01) ==
LOC: ER 23:28
DX: J45.901 Unspecified asthma with (acute) exacerbation (principal); F17.210 Nicotine dependence, cigarettes, uncomplicated; Z76.0 Encounter for issue of repeat prescription
CPT/HCPCS: 71045; 94640; 94664; 99285-25

== ENCOUNTER 2021-05-10 16:42 | Emergency (ER) | payer OTHER ==
[~2021-05-10] VITALS: Ht 174 cm; Wt 93.6 kg
[2021-05-10 16:42] VITALS: BP 110/60
[~2021-05-10 16:42] MED LIST changes: -CYCL-331 PO; +CYCL10TA19 PO
[2021-05-10] MEDS ORDERED: ACETAMINOPHEN 500 MG TABLET PO ONE (17:00)
[2021-05-10] MEDS ORDERED: IBUPROFEN 600 MG TABLET. PO ONE (17:00)
--- NOTE | 2021-05-10 17:32 | RAD ---
EXAM: LEFT ANKLE 3 VIEWS. HISTORY: Pain after a fall COMPARISON: None. FINDINGS: Three views of the left ankle are obtained. No fractures are identified. Alignment is normal. Joint spaces are maintained. IMPRESSION: 1. No fracture. Electronically signed by: Hemal Montenegro MD (05/10/2021 5:29 PM) [facility]
--- NOTE | 2021-05-10 18:11 | PHYS DOC ---
Past History Past Medical History: Anemia, Anxiety, Bipolar, Constipation, Depression, Schizophrenia, STD, UTI, Other Additional Past Medical Histor: ADHD, PTSD (QUE ROSEN APRN) Past Surgical History: No Surgical History (QUE ROSEN APRN) Smoking: Cigarettes Alcohol Use: Occasionally (QUE ROSEN APRN) Adult General Chief Complaint Chief Complaint: ANKLE PROBLEM HPI HPI Patient is a 21-year-old female patient presented to the ED today complaining of mild left lateral ankle pain that began yesterday after she stepped into a hole twisting her left ankle. Patient describes the pain as throbbing and intermittent worse on weightbearing. Denies anything specifically relieving the pain. (QUE ROSEN APRN) Review of Systems Review of Systems Constitutional: Denies fever or chills [] Musculoskeletal: Reports left lateral ankle pain Integument: Denies rash or skin lesions [] Neurologic: Denies headache, focal weakness or sensory changes [] All other systems were reviewed and found to be within normal limits, except as documented in this note. (QUE ROSEN APRN) Current Medications Current Medications Current Medications Medications (Trade) Dose Ordered Sig/Lata Start Time Stop Time Status Last Admin Dose Admin Acetaminophen (Tylenol) 1,000 mg 1X ONCE 05/10/21 17:00 05/10/21 17:09 DC Ibuprofen (Motrin) 600 mg 1X ONCE 05/10/21 17:00 05/10/21 17:09 DC (QUE ROSEN APRN) Allergies Allergies Allergies Coded Allergies Type Severity Reaction Last Updated Verified carbamazepine Allergy Unknown 03/09/21 Yes (QUE ROSEN APRN) Physical Exam Physical Exam Constitutional: Well developed, well nourished, no acute distress, non-toxic appearance. [] Skin: Warm, dry, no erythema, no rash. [] Back: No tenderness, no CVA tenderness. [] Extremities: Left ankle with no deformities, no edema, no ecchymosis. No tenderness on exam. Full range of motion to the left ankle and foot. +2 left pedal pulse. Cap refill less than 2 seconds to left toes. Neurologic: Alert and oriented X 3, normal motor function, normal sensory function, no focal deficits noted. [] Psychologic: Affect normal, judgement normal, mood normal. [] (QUE ROSEN [employer]) Current Patient Data Vital Signs Vital Signs Date Time Temp Pulse Resp B/P (MAP) Pulse Ox O2 Delivery O2 Flow Rate FiO2 05/10/21 16:42 97.7 80 16 110/60 (77) 99 Room Air (QUE ROSEN Jeanmarie MALLORY) EKG EKG [] (QUE ROSEN Jeanmarie MALLORY) Radiology/Procedures Radiology/Procedures PROCEDURE: ANKLE LEFT 3V EXAM: LEFT ANKLE 3 VIEWS. HISTORY: Pain after a fall COMPARISON: None. FINDINGS: Three views of the left ankle are obtained. No fractures are identified. Alignment is normal. Joint spaces are maintained. IMPRESSION: 1. No fracture. Electronically signed by: Hemal Montenegro MD (05/10/2021 5:29 PM) [facility] DICTATED AND SIGNED BY: ELIAS MONTENEGRO MD DATE: 05/10/211727 CC: NERY HUNT APRN; PCP,NO ~MTH0 0 (JAMIEROSAQUE Santana APRN) Heart Score C/O Chest Pain: N/A Risk Factors: Risk Factors: DM, Current or recent (<one month) smoker, HTN, HLP, family history of CAD, obesity. Risk Scores: Risk Factors: DM, Current or recent (<one month) smoker, HTN, HLP, family history of CAD, obesity. (QUE ROSEN APRN) Course & Med Decision Making Course & Med Decision Making Pertinent Labs and Imaging studies reviewed. (See chart for details) This is a 21-year-old female patient presenting to the ED today with complaints of left ankle pain. Left ankle x-rays are negative for any acute findings. Nursing staff informs me patient eloped (SILASQUE Murry APRN) Dragon Disclaimer Dragon Disclaimer This electronic medical record was generated, in whole or in part, using a voice recognition dictation system. (QUE ROSEN APRN) Departure Departure: Impression: Primary Impression: Left ankle sprain Disposition: HOME / SELF CARE / HOMELESS Condition: STABLE Referrals: PCP,NO (PCP) Dragon Disclaimer This chart was dictated in whole or in part using Voice Recognition software in a busy, high-work load, and often noisy Emergency Department environment. It may contain unintended and wholly unrecognized errors or omissions. (YOLA NIELSEN MD) Attending Signature Attending Signature I have participated in the care of this patient and I have reviewed and agree with all pertinent clinical information above including history, exam, and recommendations. (YOLA NIELSEN MD) Problem Qualifiers Primary Impression: Left ankle sprain Encounter type: initial encounter Involved ligament of ankle: unspecified ligament Qualified Codes: S93.402A - Sprain of unspecified ligament of left ankle, initial encounter QUE ROSEN [employer] May 10, 2021 18:11 YOLA NIELSEN MD May 16, 2021 02:43
== END 2021-05-10 17:50 | disposition left against medical advice (07) ==
LOC: ER 16:42
DX: S93.402A Sprain of unspecified ligament of left ankle, initial encounter (principal); F41.9 Anxiety disorder, unspecified; F31.9 Bipolar disorder, unspecified; F20.9 Schizophrenia, unspecified; F17.210 Nicotine dependence, cigarettes, uncomplicated; Z87.440 Personal history of urinary (tract) infections; Z86.2 Personal history of diseases of the blood and blood-forming organs and certain disorders involving the immune mechanism; Z88.8 Allergy status to other drugs, medicaments and biological substances; X50.9XXA Other and unspecified overexertion or strenuous movements or postures, initial encounter; Y93.89 Activity, other specified; Y92.89 Other specified places as the place of occurrence of the external cause; Y99.8 Other external cause status
CPT/HCPCS: 73610; 99283